=== PATIENT | female | born 1985 | race Caucasian/White ===

== ENCOUNTER → 2016-10-15 | Outpatient (CLI) | payer OTHER ==
[~2016-10-15] VITALS: Ht 167.6 cm; Wt 72.7 kg
[~2016-10-15] MED LIST: ACET-76 PO; CEFAZOLIN PMX 2GM/50ML 50 ML IV ONE; D5%-LACTATED RINGERS 1,000 ML IV ONE; D5%-LACTATED RINGERS 1,000 ML IV SCH; DOXY1TAB3 PO; IBUP-1222 PO; LACTATED RINGERS 1,000 ML IVBOLUS ONE; OXYC-302 PO; SULF1TAB23 PO
[2016-10-15 09:30] VITALS: BP 134/84
== END | disposition home or self-care (01) ==
LOC: LDOP 08:59
PROVIDERS: ATTEND Obstetrics & Gynecology Gynecology
DX: O26.892 Other specified pregnancy related conditions, second trimester (principal); E86.0 Dehydration; O21.9 Vomiting of pregnancy, unspecified; Z3A.23 23 weeks gestation of pregnancy
CPT/HCPCS: 59025; 81001; 87086; 96360; 96361; 96365; 99201; J0690; J7120; G0463; J7121

== ENCOUNTER 2017-01-02 12:27 | Outpatient (CLI) | payer OTHER ==
[~2017-01-02] VITALS: Ht 167.6 cm; Wt 72.0 kg
[~2017-01-02 12:27] MED LIST changes: -CEFAZOLIN PMX 2GM/50ML 50 ML IV ONE; -D5%-LACTATED RINGERS 1,000 ML IV ONE; -D5%-LACTATED RINGERS 1,000 ML IV SCH; -LACTATED RINGERS 1,000 ML IVBOLUS ONE
[2017-01-02] MEDS ORDERED: TERBUTALINE 1 MG/ML, 1ML ONE (13:41)
[2017-01-02 13:55] LABS: AMNI OBC PASS; AMNISURE NEGATIVE (NEGATIVE)
[2017-01-02] MEDS ORDERED: TERBUTALINE 1 MG/ML, 1ML SQ ONE (14:00)
[2017-01-02] MEDS ORDERED: BETAMETHASONE 6 MG/ML, 5ML IM ONE ×2 (15:46→16:00)
[2017-01-03] MEDS ORDERED: ONDA8TAB12 PO (17:02)
[2017-01-03] MEDS ORDERED: FERR324T8 PO (17:03)
== END 2017-01-02 16:05 | disposition home or self-care (01) ==
LOC: LDOP 12:27
PROVIDERS: ATTEND Obstetrics & Gynecology Gynecology
DX: O26.893 Other specified pregnancy related conditions, third trimester (principal); O62.9 Abnormality of forces of labor, unspecified; R10.9 Unspecified abdominal pain; M54.9 Dorsalgia, unspecified; Z3A.35 35 weeks gestation of pregnancy
CPT/HCPCS: 59025; 81001; 84112; 87086; 96372; 99211; J0702; J3105; G0463

== ENCOUNTER 2017-01-03 16:18 | Outpatient (CLI) | payer OTHER ==
[~2017-01-03] VITALS: Ht 167.6 cm; Wt 74.5 kg
[2017-01-03 16:35] VITALS: BP 122/74
[2017-01-03] MEDS ORDERED: BETAMETHASONE 6 MG/ML, 5ML IM ONE (17:00)
[2017-01-03] MEDS ORDERED: ONDA8TAB12 PO (17:02)
[2017-01-03] MEDS ORDERED: FERR324T8 PO (17:03)
[2017-01-03 17:24] LABS: DAU SCREEN DISCLAIMER
== END 2017-01-03 18:06 | disposition home or self-care (01) ==
LOC: LDOP 16:18
PROVIDERS: ATTEND Obstetrics & Gynecology Gynecology
DX: O36.8130 Decreased fetal movements, third trimester, not applicable or unspecified (principal); Z3A.35 35 weeks gestation of pregnancy
CPT/HCPCS: 59025; 80307; 81001; 99211; J0702; G0463

== ENCOUNTER 2017-01-07 11:12 | Outpatient (CLI) | payer OTHER ==
[~2017-01-07] VITALS: Ht 167.6 cm; Wt 75.0 kg
[~2017-01-07 11:12] MED LIST changes: +FERR324T8 PO; +ONDA8TAB12 PO
[2017-01-07 11:38] VITALS: BP 121/78
[2017-01-07 11:59] LABS: DAU SCREEN DISCLAIMER
== END 2017-01-07 12:30 | disposition home or self-care (01) ==
LOC: LDOP 11:12
PROVIDERS: ATTEND Obstetrics & Gynecology Gynecology
DX: O26.893 Other specified pregnancy related conditions, third trimester (principal); O60.03 Preterm labor without delivery, third trimester; R10.9 Unspecified abdominal pain; Z3A.35 35 weeks gestation of pregnancy
CPT/HCPCS: 59025; 80307; 99211; G0463

== ENCOUNTER 2017-01-17 11:36 | Outpatient (CLI) | payer OTHER ==
[~2017-01-17] VITALS: Ht 167.6 cm; Wt 74.0 kg
[2017-01-17 11:52] VITALS: BP 131/85
[2017-01-17 12:03] LABS: DAU SCREEN DISCLAIMER
== END 2017-01-17 14:35 | disposition home or self-care (01) ==
LOC: LDOP 11:36
PROVIDERS: ATTEND Obstetrics & Gynecology Gynecology
DX: O26.893 Other specified pregnancy related conditions, third trimester (principal); O62.9 Abnormality of forces of labor, unspecified; O47.1 False labor at or after 37 completed weeks of gestation; R10.9 Unspecified abdominal pain; Z3A.37 37 weeks gestation of pregnancy
CPT/HCPCS: 59025; 80307; 99211; G0463

== ENCOUNTER 2017-01-25 05:42 | Inpatient (IN) | payer OTHER ==
[~2017-01-25] VITALS: Ht 167.6 cm; Wt 73.0 kg
[2017-01-25] MEDS: D5%-LACTATED RINGERS 1,000 ML IV SCH ×3 (05:47→21:47)
[2017-01-25] MEDS: LACTATED RINGERS 1,000 ML IV SCH ×3 (05:47→21:47)
[2017-01-25] MEDS ORDERED: OXYTOCIN 30U/ 0.9% NaCL 500ML 500 ML IV ONE (05:47)
[2017-01-25] MEDS ORDERED: LIDOCAINE 1%, 20ML ONE (05:50)
[2017-01-25] MEDS ORDERED: MISOPROSTOL 200 MCG TABLET ONE (05:51)
[2017-01-25] MEDS ORDERED: OXYTOCIN 30U/ 0.9% NaCL 500ML 500 ML ONE (05:51)
[2017-01-25] MEDS ORDERED: NEWBORN KIT ONE (05:51)
[2017-01-25] MEDS ORDERED: FENTANYL PF 100 MCG/2ML ONE (05:55)
[2017-01-25] MEDS ORDERED: FENTANYL PF 100 MCG/2ML IV PRN (06:00)
[2017-01-25] MEDS ORDERED: CALCIUM CARBONATE 500 MG TAB.CHEW PO PRN (06:00)
[2017-01-25] MEDS ORDERED: FENTANYL PF 100 MCG/2ML IVPush PRN (06:00)
[2017-01-25] MEDS ORDERED: TERBUTALINE 1 MG/ML, 1ML IVPush PRN (06:00)
[2017-01-25] MEDS ORDERED: ONDANSETRON 2MG/ML, 2ML IVPush PRN (06:00)
[2017-01-25] MEDS: OXYTOCIN 30U/ 0.9% NaCL 500ML 500 ML IV SCH ×14 (07:29→23:15)
[2017-01-25] MEDS ORDERED: OXYcodone/APAP 5/325MG TABLET PO PRN (07:30)
[2017-01-25] MEDS ORDERED: MISOPROSTOL 200 MCG TABLET PR PRN (07:30)
[2017-01-25] MEDS ORDERED: IBUPROFEN 600 MG TABLET ONE (08:35)
[2017-01-25] MEDS ORDERED: OXYcodone/APAP 5/325MG TABLET ONE (08:35)
[2017-01-25] MEDS: OXYcodone/APAP 5/325MG TABLET PO PRN ×4 (08:39→23:20)
[2017-01-25] MEDS: IBUPROFEN 600 MG TABLET PO PRN ×2 (08:39→17:53)
[2017-01-25] MEDS: PRENATAL VIT/IRON/FA 1 EACH TABLET PO SCH ×2 (09:00→12:59)
[2017-01-25 09:50] VITALS: BP 126/78
[2017-01-25 12:00] VITALS: BP 116/76
[2017-01-25] MEDS: ONDANSETRON 2MG/ML, 2ML IV PRN ×2 (12:06→15:09)
[2017-01-25 16:08] VITALS: BP 130/77
[2017-01-25 19:08] LABS: DAU SCREEN DISCLAIMER
[2017-01-25 20:00] VITALS: BP 107/67
[2017-01-25] MEDS ORDERED: METOCLOPRAMIDE 5 MG/ML, 2ML IVPush PRN (20:00)
[2017-01-25] MEDS ORDERED: PROMETHAZINE 25 MG/ML, 1ML IM PRN (20:00)
[2017-01-26] MEDS: OXYTOCIN 30U/ 0.9% NaCL 500ML 500 ML IV SCH ×20 (00:41→23:37)
[2017-01-26 01:00] VITALS: BP 100/63
[2017-01-26 03:50] VITALS: BP 116/73
[2017-01-26] MEDS: IBUPROFEN 600 MG TABLET PO PRN ×3 (05:40→19:25)
[2017-01-26] MEDS: LACTATED RINGERS 1,000 ML IV SCH ×3 (05:47→21:47)
[2017-01-26] MEDS: D5%-LACTATED RINGERS 1,000 ML IV SCH ×3 (05:47→21:47)
[2017-01-26] MEDS ORDERED: METOCLOPRAMIDE 10MG TABLET PO PRN (07:30)
[2017-01-26 07:40] VITALS: BP 117/81
[2017-01-26] MEDS: PRENATAL VIT/IRON/FA 1 EACH TABLET PO SCH (10:34)
[2017-01-26] MEDS: DOCUSATE 100 MG CAPSULE PO PRN ×2 (10:34→19:25)
[2017-01-26] MEDS: FERROUS SULFATE 325 MG TABLET PO SCH ×2 (10:34→19:25)
[2017-01-26] MEDS: ONDANSETRON ODT 4 MG PO PRN (10:35)
[2017-01-26] MEDS: OXYcodone/APAP 5/325MG TABLET PO PRN (10:35)
[2017-01-26 22:55] VITALS: BP 114/75
[2017-01-27] MEDS: OXYTOCIN 30U/ 0.9% NaCL 500ML 500 ML IV SCH ×10 (01:03→12:31)
[2017-01-27] MEDS: IBUPROFEN 600 MG TABLET PO PRN ×2 (04:59→10:47)
[2017-01-27] MEDS: D5%-LACTATED RINGERS 1,000 ML IV SCH (05:47)
[2017-01-27] MEDS: LACTATED RINGERS 1,000 ML IV SCH (05:47)
[2017-01-27 07:00] VITALS: BP 118/70
[2017-01-27] MEDS: PRENATAL VIT/IRON/FA 1 EACH TABLET PO SCH (08:04)
[2017-01-27] MEDS: FERROUS SULFATE 325 MG TABLET PO SCH (08:04)
[2017-01-27] MEDS: DOCUSATE 100 MG CAPSULE PO PRN (08:04)
[2017-01-27] MEDS ORDERED: OXYC-302 PO (09:42)
[2017-01-27] MEDS ORDERED: IBUP200T48 PO (09:45)
[2017-01-27] MEDS ORDERED: DOCU-30 PO (09:49)
[2017-01-27] MEDS ORDERED: FERR325T5 PO (09:50)
[2017-01-27] MEDS: ONDANSETRON ODT 4 MG PO PRN (10:48)
== END 2017-01-27 13:15 | disposition home or self-care (01) | DRG 775 ==
LOC: LDOP 05:42 → LDIP 05:46 → 2NW 09:32
PROVIDERS: ADMIT Obstetrics & Gynecology Gynecology; ATTEND Obstetrics & Gynecology Gynecology
PROC: 10E0XZZ Delivery of Products of Conception, External Approach (ICD-10-PCS; principal; 2017-01-25)
PROC: 0KQM0ZZ Repair Perineum Muscle, Open Approach (ICD-10-PCS; 2017-01-25)
DX: O76 Abnormality in fetal heart rate and rhythm complicating labor and delivery (principal); O99.324 Drug use complicating childbirth; O69.1XX0 Labor and delivery complicated by cord around neck, with compression, not applicable or unspecified; O70.1 Second degree perineal laceration during delivery; D64.9 Anemia, unspecified; O99.02 Anemia complicating childbirth; O62.3 Precipitate labor; F12.90 Cannabis use, unspecified, uncomplicated; O77.0 Labor and delivery complicated by meconium in amniotic fluid; Z88.6 Allergy status to analgesic agent; Z37.0 Single live birth; Z3A.38 38 weeks gestation of pregnancy; Z88.0 Allergy status to penicillin; Z88.8 Allergy status to other drugs, medicaments and biological substances
CPT/HCPCS: 36415; 80307; 85025; 86850; 86900; J2405; J3010; Q0162; J2590; J2765

== ENCOUNTER → 2017-07-25 | Outpatient (CLI) | payer OTHER ==
[~2017-07-25] MED LIST changes: +DOCU-131 PO; +FERR325T5 PO; +IBUP200T49 PO
== END | disposition home or self-care (01) ==
LOC: RAD 08:46
PROVIDERS: ATTEND Obstetrics & Gynecology Gynecology
DX: Z30.9 Encounter for contraceptive management, unspecified (principal); N97.1 Female infertility of tubal origin
CPT/HCPCS: 74740

== ENCOUNTER 2019-04-29 05:40 | Day surgery (SDC) | payer OTHER ==
[~2019-04-29] VITALS: Ht 167.6 cm; Wt 69.3 kg
[~2019-04-29 05:40] MED LIST changes: +NONE PER PT
[2019-04-29 06:22] VITALS: BP 125/84
[2019-04-29] MEDS ORDERED: LACTATED RINGERS 1,000 ML IV SCH (06:24)
[2019-04-29 06:39] LABS: HCG UR SG 1.021 (1.003-1.030)
[2019-04-29] MEDS ORDERED: FENTANYL PF 250 MCG/5ML ONE ×2 (06:45→08:10)
[2019-04-29] MEDS ORDERED: MIDAZOLAM 1 MG/ML, 2ML ONE (06:45)
[2019-04-29] MEDS ORDERED: PHENYLEPHRINE 10 MG/ML ONE (06:51)
[2019-04-29] MEDS ORDERED: PROPOFOL 10 MG/ML, 20ML ONE (06:56)
[2019-04-29] MEDS ORDERED: CEFAZOLIN 1,000 MG ONE (06:56)
[2019-04-29] MEDS ORDERED: ROCURONIUM 10MG/ML,5ML ONE (06:56)
[2019-04-29] MEDS ORDERED: DEXAMETHASONE 4 MG/ML, 1ML ONE (06:56)
[2019-04-29] MEDS ORDERED: NEOSTIGMINE 1 MG/ML, 10ML ONE (06:56)
[2019-04-29] MEDS ORDERED: ONDANSETRON 2MG/ML, 2ML ONE (06:56)
[2019-04-29] MEDS ORDERED: GLYCOPYRROLATE 0.2MG/1ML, 5ML ONE (06:56)
[2019-04-29] MEDS ORDERED: ACETAMINOPHEN 500 MG TABLET PO ONE (07:00)
[2019-04-29] MEDS ORDERED: GABAPENTIN 300 MG CAPSULE PO ONE (07:00)
[2019-04-29] MEDS ORDERED: SCOPOLAMINE PATCH, 1.5MG PATCH.TD72 TD ONE (07:00)
[2019-04-29] MEDS ORDERED: BUPIVACAINE/PF 0.25% ONE (07:10)
[2019-04-29] MEDS ORDERED: INDIGO CARMINE 0.8%, 5ML ONE (07:11)
[2019-04-29] MEDS ORDERED: EPINEPHRINE 1 MG/ML, 1ML ONE (07:11)
[2019-04-29] MEDS ORDERED: CEFOTETAN PMX 2GM/50ML 50 ML ONE (07:11)
[2019-04-29] MEDS ORDERED: MORPHINE SULFATE 4 MG/ML, 1ML IVPush PRN (07:30)
[2019-04-29] MEDS ORDERED: PROMETHAZINE 25 MG/ML, 1ML IV PRN (07:30)
[2019-04-29] MEDS ORDERED: HYDROmorphone 2 MG/ML, 1ML IVPush PRN (07:30)
[2019-04-29] MEDS ORDERED: hydrALAzine 20 MG/ML, 1ML IV PRN (07:30)
[2019-04-29] MEDS ORDERED: FENTANYL PF 100 MCG/2ML IV PRN (07:30)
[2019-04-29] MEDS ORDERED: HALOPERIDOL 5 MG/ML IV PRN (07:30)
[2019-04-29] MEDS ORDERED: LABETALOL 5MG/ML, 20ML IV PRN (07:30)
[2019-04-29] MEDS ORDERED: MEPERIDINE/PF 25MG/ML,1ML IVPush PRN (07:30)
[2019-04-29] MEDS ORDERED: KETOROLAC 30 MG/1 ML ONE (07:31)
[2019-04-29] MEDS ORDERED: PROPOFOL 50 ML ONE (07:44)
[2019-04-29] MEDS ORDERED: FENTANYL PF 100 MCG/2ML ONE ×2 (08:33→10:40)
[2019-04-29] MEDS ORDERED: OXYcodone 5 MG/5 ML ORAL.SOL UDC ONE (10:40)
[2019-04-29] MEDS: OXYcodone 5 MG/5 ML ORAL.SOL UDC PO PRN ×2 (11:00→11:59)
== END 2019-04-29 16:25 | disposition home or self-care (01) ==
LOC: OUT 05:40
PROVIDERS: ATTEND Obstetrics & Gynecology Gynecology
DX: R10.2 Pelvic and perineal pain (principal); N94.6 Dysmenorrhea, unspecified; N94.10 Unspecified dyspareunia; N80.0 Endometriosis of uterus; N72 Inflammatory disease of cervix uteri; N83.201 Unspecified ovarian cyst, right side; N73.6 Female pelvic peritoneal adhesions (postinfective); Z88.0 Allergy status to penicillin; Z88.5 Allergy status to narcotic agent; Z88.8 Allergy status to other drugs, medicaments and biological substances; Z98.890 Other specified postprocedural states; Z83.3 Family history of diabetes mellitus; Z82.49 Family history of ischemic heart disease and other diseases of the circulatory system
CPT/HCPCS: 58552; 81025; 88307; J0171; J1100; J1885; J2250; J2370; J2405; J2704; J2710; J3010; J3490; J7120; S2900; J0690

== ENCOUNTER 2020-05-23 12:29 | Emergency (ER) | payer OTHER ==
[~2020-05-23] VITALS: Ht 167.6 cm; Wt 73.0 kg
[2020-05-23 14:32] LABS: BASOPHILS % (AUTO) 1 % (0-1); EOSINOPHILS % (AUTO) 3 % (1-7); LYMPHOCYTES % (AUTO) 25 % (22-44); MEAN CORPUSCULAR HEMOGLOBIN 28.1 pg (27.0-34.8); MEAN CORPUSCULAR HGB CONC 34.2 g/dL (32.4-35.8); MEAN PLATELET VOLUME 8.1 fL (7.4-10.4); MONOCYTES % (AUTO) 4 % (2-9); NEUTROPHILS % (AUTO) 67 % (42-75); PLATELET COUNT 268 x10^3/uL (130-400); RED BLOOD COUNT 5.25 x10^6/uL (3.82-5.3); RED CELL DISTRIBUTION WIDTH 13.4 % (9.6-15.2)
[2020-05-23 14:34] LABS: ANION GAP 7 mmol/L (5-15); CALCIUM 9.3 mg/dL (8.5-10.1); CHLORIDE 108 mmol/L (98-107)
[2020-05-23 14:39] LABS: ALANINE AMINOTRANSFERASE 31 U/L (12-78); ALKALINE PHOSPHATASE 66 U/L (45-117); BILIRUBIN,TOTAL 0.5 mg/dL (0.2-1.0); CREATININE 0.86 mg/dL (0.55-1.02); MD NO
[2020-05-23 15:41] LABS: MICROSCOPIC NOT IND
--- NOTE | 2020-05-23 18:34 | NUR ---
THIS FLOAT RN AT BEDSIDE TO DC PT FOR PRIMARY RN CHAD. PT VERBALIZED UNDERSTANDING TO DC INSTRUCTIONS. AMBULATORY TO CHECKOUT C STEADY GAIT. VSS.
[2020-05-23 18:35] VITALS: BP 137/91
== END 2020-05-23 18:37 | disposition home or self-care (01) ==
LOC: ED 16:37
DX: N83.202 Unspecified ovarian cyst, left side (principal); Z87.891 Personal history of nicotine dependence; Z90.710 Acquired absence of both cervix and uterus
CPT/HCPCS: 36415; 76830; 80053; 81003; 85025; 99284